=== PATIENT | male | born 1975 | race Caucasian/White ===

== ENCOUNTER 2016-10-26 11:41 | Emergency (ER) | payer BC ==
--- NOTE | ~2016-10-26 | CR127 ---
[facility]. [facility] A Service of [facility] RADIOLOGY TEXT RESULTS PATIENT: ROSITA PATHAK LOCATION: SED : 79 UNIT #: [id number] AGE: [address]: Nadja Souza APRN SEX: M ORDER DR: [id number] [address] [id number] E MR#: [id number] Acc #: [id number] NAME: ROSITA PATHAK. : 1975 SEX: M STUDY DATE/TIME: 10/26/2016 11:26 UNIT: SED ROOM: STUDY DESCRIPTION: CR Foot Complete Min 3 View Rt Attending Physician: Nadja Souza A.P.R.N. Ordering Physician: Nadja Souza A.P.R.N. Primary Care Physician: Last Woody M.D. MEDICAL IMAGING REPORT This report is preliminary unless electronic signature is present. EXAM Right foot series dated 10/26/2016 COMPARISON Left foot series dated 11/17/2008. No prior right foot studies. HISTORY Patient hit right foot on the door with pain and bruising since last night. FINDINGS 3 views of the right foot were obtained. No acute displaced fracture, dislocation or destructive bony mass is seen. There is a history of bruising of the foot but it cannot be adequately seen in this modality. No radiopaque soft tissue foreign body. Dictated by... Keshawn Rooney M.D. THIS IS AN ELECTRONICALLY VERIFIED REPORT Keshawn Rooney M.D. at 10/27/2016 4:56 PM CPR/mjs TD: 10/26/2016 14:17 JOB #: [id number] MEDICAL IMAGING REPORT
[~2016-10-26 11:41] MED LIST: VICODIN 5/500 T1 TAB PO
== END 2016-10-26 12:47 | disposition home or self-care (01) ==
LOC: SED 11:41
DX: S93.621A Sprain of tarsometatarsal ligament of right foot, initial encounter (principal); F17.200 Nicotine dependence, unspecified, uncomplicated; Z98.890 Other specified postprocedural states; W22.03XA Walked into furniture, initial encounter; Y92.009 Unspecified place in unspecified non-institutional (private) residence as the place of occurrence of the external cause
CPT/HCPCS: 29405; 73630; 99283